=== PATIENT | female | born 1950 ===

== ENCOUNTER 2024-07-14 16:51 | Observation (INO) | payer MEDICARE, SELFPAY ==
[2024-07-14] VITALS (14 sets, daily range): BP systolic 123–159; BP diastolic 6–67; PULSE 64–92; RESP 15–17; TEMP 36.4–36.6; O2SAT 96–100; BMI 26.6
[2024-07-14 17:34] LABS: Basophils Absolute Auto 0.08 K/mm3 (0.00-0.10); Basophils Percent Auto 0.7 % (0.0-1.0); Eosinophils Absolute Auto 0.26 K/mm3 (0.02-0.50); Eosinophils Percent Auto 2.4 % (1.0-6.0); Hematocrit 31.5 % (35.0-42.0); Hemoglobin 10.2 g/dL (11.7-13.8); Immature Granulocyte Absolute 0.08 K/mm3 (0.00-0.00); Immature Granulocyte Percent A 0.7 % (0.0-0.0); Immature Platelet Fraction Pct 1.2 % (1.0-7.0); Lymphocytes Absolute Auto 1.25 K/mm3 (1.10-4.50); Lymphocytes Percent Auto 11.7 % (18.0-42.0); Mean Corpuscular HGB Conc 32.4 g/dL (32-36); Mean Corpuscular Hemoglobin 29.1 pg (27.0-31.0); Mean Corpuscular Volume 89.7 fL (78.0-102.0); Monocytes Absolute Auto 0.85 K/mm3 (0.10-0.90); Neutrophils Absolute Auto 8.15 K/mm3 (1.70-7.20); Neutrophils Percent Auto 76.5 % (50.0-70.0); Platelet Count Result 517 K/mm3 (150-420); Red Blood Count 3.51 M/mm3 (4.20-5.40); Red Cell Distribution Width 13.8 % (11.6-14.4); White Blood Count 10.7 K/mm3 (4.8-10.8)
[2024-07-14 17:51] LABS: Alanine Aminotransferase 10 U/L (14-59); Albumin Level 2.3 g/dL (3.4-5.0); Alkaline Phosphatase 96 U/L (46-116); Anion Gap 12 mmol/L (4-12); Aspartate Amino Transferase 16 U/L (15-37); Bilirubin,Total 0.5 mg/dL (0.00-1.00); Blood Urea Nitrogen 71 mg/dL (7-18); Calcium 9.2 mg/dL (8.5-10.1); Carbon Dioxide 20 mmol/L (21-32); Chloride 105 mmol/L (98-108); Estimated CRCL calculation 34 ml/min; Estimated Glomerular Filt Rate 40; Glucose 264 mg/dL (70-99); Magnesium 1.8 mg/dL (1.8-2.4); Osmolality Calculated 313 mOsm/kg (285-295); Potassium 4.7 mmol/L (3.5-5.1); Sodium 137 mmol/L (136-145); Total Protein 6.8 g/dL (6.4-8.2)
--- NOTE | 2024-07-14 19:41 | ADMGEN ---
This patient, Lisa Wilcox, was admitted to 2nd Floor Room 202-1. Patient/family oriented to hospital policies and general routines including ID bracelet, bed and alarms, visiting hours, pain management, procedures, bathroom and other care routines, personal items, smoking policy, room service/diet, and visiting hours. Information on how to activate the Rapid Response Team has been discussed. Patient/Family are encouraged to report perceived risks to care and to ask questions if they do not understand what they are told or what they should do.
[2024-07-14] MEDS: METOPROLOL TARTRATE 50 MG TAB BY MOUTH (22:13)
[2024-07-14] MEDS: ATORVASTATIN 40 MG TABLET PO (22:13)
[2024-07-14] MEDS: SACUBITRIL/VALSARTAN 49-51 MG TABLET 1 TABLET PO (22:14)
[2024-07-14] MEDS: MELATONIN 5 MG TABLET PO (22:14)
[2024-07-14] MEDS: HYDROcodone/acetaminophen (*CRX) 5-325 MG TABLET 1 TAB PO (23:24)
[2024-07-15] VITALS: BP 146/61; PULSE 70; RESP 16; TEMP 37.2; O2SAT 99
[2024-07-15 05:14] LABS: Basophils Absolute Auto 0.07 K/mm3 (0.00-0.10); Basophils Percent Auto 0.7 % (0.0-1.0); Eosinophils Absolute Auto 0.33 K/mm3 (0.02-0.50); Eosinophils Percent Auto 3.2 % (1.0-6.0); Hemoglobin 9.2 g/dL (11.7-13.8); Immature Granulocyte Absolute 0.06 K/mm3 (0.00-0.00); Immature Granulocyte Percent A 0.6 % (0.0-0.0); Lymphocytes Absolute Auto 1.45 K/mm3 (1.10-4.50); Mean Corpuscular HGB Conc 32.9 g/dL (32-36); Mean Corpuscular Hemoglobin 29.9 pg (27.0-31.0); Mean Corpuscular Volume 90.9 fL (78.0-102.0); Mean Platelet Volume 9.4 fl (9.2-11.8); Monocytes Absolute Auto 0.98 K/mm3 (0.10-0.90); Monocytes Percent Auto 9.4 % (2.0-11.0); Neutrophils Percent Auto 72.1 % (50.0-70.0); Platelet Count Result 417 K/mm3 (150-420); Red Blood Count 3.08 M/mm3 (4.20-5.40); Red Cell Distribution Width 13.8 % (11.6-14.4); White Blood Count 10.4 K/mm3 (4.8-10.8)
[2024-07-15 05:29] LABS: Alanine Aminotransferase 19 U/L (14-59); Albumin Level 2.1 g/dL (3.4-5.0); Alkaline Phosphatase 89 U/L (46-116); Anion Gap 9 mmol/L (4-12); Aspartate Amino Transferase 16 U/L (15-37); Bilirubin,Total 0.4 mg/dL (0.00-1.00); Blood Urea Nitrogen 66 mg/dL (7-18); Calcium 9.1 mg/dL (8.5-10.1); Carbon Dioxide 23 mmol/L (21-32); Chloride 106 mmol/L (98-108); Estimated CRCL calculation 37 ml/min; Estimated Glomerular Filt Rate 43; Glucose 202 mg/dL (70-99); Osmolality Calculated 311 mOsm/kg (285-295); Potassium 4.6 mmol/L (3.5-5.1); Sodium 138 mmol/L (136-145); Total Protein 6.3 g/dL (6.4-8.2)
--- NOTE | 2024-07-15 07:19 | P.HP_ITS ---
H&P: HPI History of Present Illness Date/Time: 07/15/24 07:19 Chief Complaint: weakness Narrative: This is a 74 year old female with a significant past medical history of type 2 diabetes mellitus, hypertension, hyperlipidemia, tobacco dependence who presented to the hospital for evaluation of weakness. patient initially sustained a ground level fall at home on while at her granddaughter's house in [facility] and was taken to [facility] and underwent a right hip arthroplasty on 06/30/2024. She tolerated the procedure well without any immediate complications. She was found on EKG to have ST depression in V3, V4, V5, V6 and an elevated troponin of greater than 300 while at the outside hospital requiring transfer to tertiary care. At the outside hospital she was found to have sinus pauses on telemetry. She also had a echocardiogram which showed an ejection fraction of 30-35%, apex inferior laterally and entire septum akinetic, grade 3 LV diastolic dysfunction. She was placed on a heparin drip and was taken to the cardiac electrical laboratory technician on 07/01/2024, right radial approach. She was found to have severe multivessel disease including severely calcified and stenosed LAD of 95-99%, calcified LCX 90-95%, 100% mid RCA occlusion. She was transferred to [facility] for consideration of CABG versus PCI considering her NSTEMI and ischemic cardiomyopathy. she was offered CABG surgery however initially declined as she wanted to wait until after the holidays to have this surgery done. Her heart rate at [facility] was in the 30s to 40s and they held her Coreg and beta garrett. She was also offered rehab placement after surgery but declined stating that she would do it at home with family help. at home, EMS was called out to the house twice yesterday for assistance with toileting and was brought in for evaluation of weakness and potential rehab placement. She states that her works every day during the week and her kids were not available to help like she thought that they would. Workup in the hospital included initial labs which showed a normal white blood cell count of 10.7, hemoglobin 10.2, platelet count 517, bicarb 20, creatinine 1.31, EGFR 40, albumin 2.3. Patient was given [place] while in the ED. she is being admitted in this setting for PT/OT evaluation and potential rehab placement. she was restarted on her beta garrett by Dr. Baker, ED physician, who admitted overnight and patient received beta garrett this morning which dropped her heart rate into the 30s, ranging 36-39 appears to be sinus Darius on EKG with a heart rate of 36 and a QTC of 546. patient was placed on telemetry here and calls are being placed for emergent transfer to tertiary care for Cardiology Services with the potential of CT surgery services. Patient denies any fever, chills, nausea, vomiting, diarrhea, abdominal pain, chest pain, or shortness of breath. She is currently on room air. Her blood pressures are running soft 98/34. Code status was discussed with patient and family and she wishes to remain a full code. [facility] transfer center was called at 11:[address] a[address] Whittington, CT surgery team at [facility] at 11:34 a.m. who is deferring to regular Cardiology at [facility] as she may require pacing before CT surgery gets involved. Spoke with Orthotist Prosthetist Dr. Tiwari at [facility] who is happy to accept patient and put her on the list to transfer. We are awaiting bed placement at this time. Review of Systems Review of Systems: All systems reviewed & are unremarkable except as noted in HPI and below Constitutional: Constitutional: Reports as per HPI and Reports no additional constitutional complaints Eyes: Eyes: Reports as per HPI and Reports no additional eye complaints ENT: Reports system reviewed and no additional complaints, except as documented and Reports as per HPI Cardiovascular: Cardiovascular: Reports as per HPI and Reports no additional cardiovascular complaints Respiratory: Respiratory: Reports as per HPI and Reports no additional respiratory complaints Gastrointestinal: Gastrointestinal: Reports as per HPI and Reports no additional gastrointestinal complaints Genitourinary: Genitourinary: Reports no additional female genitourinary complaints and Reports as per HPI Musculoskeletal: Musculoskeletal: Reports no additional musculoskeletal complaints and Reports as per HPI Integumentary/Breasts: Skin/Breast: Reports system reviewed and no additional complaints, except as docu and Reports as per HPI Neurologic: Reports system reviewed and no additional complaints, except as documented and Reports as per HPI Psychiatric: Psychiatric: Reports no additional psychiatric complaints and Reports as per HPI [facility] Past Medical History Medical History (Updated 07/15/24 @ 11:56 by Olivia Rocha, MERY) Ischemic cardiomyopathy Coronary artery disease NSTEMI (non-ST elevated myocardial infarction) Acute heart failure with reduced ejection fraction (HFrEF, <= 40%) and combined systolic and diastolic dysfunction Tobacco dependence Hx of fracture of humerus Right Type 2 diabetes mellitus HTN (hypertension) Hyperlipidemia Surgical History Surgical History (Updated 07/15/24 @ 10:52 by Olivia Rocha APRN) S/P total right hip arthroplasty H/O cataract removal with insertion of prosthetic lens Right 2013 Family History Family History Mother Ovarian cancer Social History Social History Smoking status: Current every day smoker Tobacco type: cigarettes Alcohol intake: never Substance use: never Substance use type: does not use Do You Feel Safe in your Home?: Yes Lack of Transportation: No Lack of Food: Never True Current Housing: I Have Housing Concerned About Future Housing: No Difficulty Paying Gas/Electric Bills: No Difficulty Paying for Meds: No Currently Unemployed: No Education: High School Diploma/GED Difficulty w/ Childcare or Family Care: No Living arrangements: with family Spiritual care concerns: Yes () Meds Home Medications and Allergies Home Medications ?Medication ?Instructions ?Recorded ?Confirmed ?Type lisinopril 20 See Rx Instructions .Route 01/26/24 07/14/24 Rx mg-hydrochlorothiazide 12.5 mg .COMPLEX #180 tabs tablet glipizide 5 mg tablet See Rx Instructions .Route 04/27/24 07/14/24 Rx .COMPLEX #180 tabs metoprolol tartrate 50 mg tablet See Rx Instructions .Route 04/27/24 07/14/24 Rx .COMPLEX #180 tabs gemfibrozil 600 mg tablet See Rx Instructions .Route 05/15/24 07/14/24 Rx .COMPLEX #30 tabs metformin 500 mg tablet See Rx Instructions .Route 06/12/24 07/14/24 Rx .COMPLEX #60 tabs apixaban 2.5 mg tablet 2.5 mg PO Q12H 07/14/24 07/14/24 History aspirin 81 mg chewable tablet 81 mg PO DAILY 07/14/24 07/14/24 History ([place]ton Chewable Low Dose Aspirin) atorvastatin 40 mg tablet 40 mg PO HS 07/14/24 07/14/24 History cholecalciferol (vitamin D3) 50 2,000 unit PO DAILY 07/14/24 07/14/24 History mcg (2,000 unit) capsule (D3-2000) empagliflozin 10 mg tablet 10 mg PO DAILY 07/14/24 07/14/24 History sacubitril 49 mg-valsartan 51 mg 1 tablet PO BID 07/14/24 07/14/24 History tablet Allergies Allergy/AdvReac Type Severity Reaction Status Date / Time No Known Allergies Allergy Verified 07/14/24 17:08 Vital Signs Vital Signs - 24 hr 07/14/24 16:51 07/14/24 17:02 07/14/24 17:15 Temperature 97.8 F Pulse Rate 92 85 64 Respiratory Rate 16 16 16 Blood Pressure 151/64 H 151/6 H 150/67 H Pulse Oximetry 100 99 100 Oxygen Delivery Room Air 07/14/24 17:16 07/14/24 17:30 07/14/24 17:31 Temperature Pulse Rate 84 Respiratory Rate 15 Blood Pressure 123/55 L Pulse Oximetry 100 96 96 Oxygen Delivery 07/14/24 17:45 07/14/24 17:46 07/14/24 18:00 Temperature Pulse Rate 90 88 Respiratory Rate 16 15 Blood Pressure 142/64 H 147/66 H Pulse Oximetry 99 99 98 Oxygen Delivery 07/14/24 18:04 07/14/24 18:15 07/14/24 18:16 Temperature Pulse Rate 86 Respiratory Rate 17 Blood Pressure 159/67 H Pulse Oximetry 100 100 99 Oxygen Delivery 07/14/24 18:35 07/14/24 22:00 07/15/24 00:00 Temperature 97.8 F 97.5 F L 98.9 F Pulse Rate 86 87 70 Respiratory Rate 17 16 16 Blood Pressure 159/67 H 157/67 H 146/61 H Pulse Oximetry 99 100 99 Oxygen Delivery Room Air Room Air Room Air Exam Narrative: General: In no acute distress, well nourished Head: atraumatic, no encephalopathy Eyes: PERRLA, sclera clear ENT: moist mucous membranes, nasal passages clear Neck: supple, no JVD, no adenopathy, trachea midline Cardiac: Normal S1 and S2. Sinus bradycardia 36, No murmur, gallops or friction rubs, peripheral pulses intact. Respiratory: Lungs clear to auscultation, no adventitious lung sounds, currently on room air Gastrointestinal: soft, non-distended, non-tender, normoactive bowel sounds. : voiding without difficulty. Extremities: moves all extremities well, no edema, good ROM, strength 5/5 Skin: clean, dry, intact. No wounds or lesions. Neuro: Alert and oriented x4, cranial nerves intact, no neuro deficits. Psych: normal mood, normal affect, interactive H&P: Results Labs Labs: Short CBC 07/14/24 07/15/24 Range/Units 17:11 05:09 WBC 10.7 10.4 (4.8-10.8) K/mm3 Hgb 10.2 L 9.2 L (11.7-13.8) g/dL Hct 31.5 L 28.0 L (35.0-42.0) % Plt Count 517 H 417 (150-420) K/mm3 [facility] 07/14/24 07/15/24 17:11 05:09 Sodium 137 138 Potassium 4.7 4.6 Chloride 105 106 Carbon Dioxide 20 L 23 BUN 71 H 66 H Creatinine 1.31 H 1.21 H Glucose 264 H 202 H Calcium 9.2 9.1 Liver Function 07/14/24 07/15/24 Range/Units 17:11 05:09 Total Bilirubin 0.5 0.4 (0.00-1.00) mg/dL AST 16 16 (15-37) U/L ALT 10 L 19 (14-59) U/L Alkaline Phosphatase 96 89 (46-116) U/L Albumin 2.3 L 2.1 L (3.4-5.0) g/dL Assessment and Plan Assessment and plan (1) Weakness: Code(s): R53.1 - Weakness Status: Acute Assessment and Plan: * status post right hip arthroplasty on 06/30/2024 * fall precautions ordered * PT and OT ordered for eval and treat * case management consulted for rehab placement (2) S/P total right hip arthroplasty: Code(s): Z96.641 - Presence of right artificial hip joint Status: Acute Assessment and Plan: * status post right hip arthroplasty from 06/30/2024 * PT and OT ordered (3) 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 Patient was found to have ST depression in V3, V4, V5, V6 on EKG with an elevated troponin of greater than 300. She had a TTE at the outside facility which showed an ejection fraction of 30-35% with apex inferior laterally in entire septum akinetic, grade 3 left ventricular diastolic dysfunction. She was started on a heparin drip and was noted to have sinus pauses on telemetry. Patient was taken to the electrical laboratory technician on 07/01 and was accessed through the right radial and was found to have multi vessel disease LAD was severely calcified and stenosed at 95- 99%, calcified LCX 90-95%, mid RCA was 100% occluded and she was transferred to [place] for consideration of CABG versus PCI * patient refused CABG or intervention at [facility] until after the holidays and an appointment was set up with Dr. Avila on 08/05/2023 and was discharged * she was placed on Jardiance, Entresto * Coreg was placed on hold to 2 bradycardia and spironolactone was held due to hyperkalemia at the outside hospital * patient was given her metoprolol this morning which was prescribed by the ED physician Dr. Baker even though she had a history of Darius arrhythmias at the outside hospital, her heart rate is currently in the 30s on monitor * metoprolol placed on hold by sd * stat EKG showed sinus Darius with a rate of 36, QTC 546 * [facility] transfer center called and patient accepted by Dr. Tiwari adhesion tester at [facility], awaiting bed placement. (4) Coronary artery disease: Code(s): I25.10 - Atherosclerotic heart disease of [place] coronary artery without angina pectoris Status: Acute Assessment and Plan: * cardiac catheterization on 07/01/2024, right radial approach shown severe multivessel disease including the LAD which was severely calcified /stenosed at 95-99%, calcified LCX at 90-95%, 100% mid RCA occlusion * patient refused CABG at [facility] until after the holidays and currently has an appointment with Dr. Avila on 08/05/2023 * continue cardiac monitoring (5) Ischemic cardiomyopathy: Code(s): I25.5 - Ischemic cardiomyopathy Status: Acute Assessment and Plan: * see above plan of care (6) NSTEMI (non-ST elevated myocardial infarction): Code(s): I21.4 - Non-ST elevation (NSTEMI) myocardial infarction Status: Acute Assessment and Plan: * history of NSTEMI at outside hospital with troponin bumped greater than 300 she was transferred to [facility] for consideration of CABG versus PCI * see above for details (7) Type 2 diabetes mellitus: Code(s): E11.9 - Type 2 diabetes mellitus without complications Status: Chronic Assessment and Plan: * Blood sugars ranging 202-264 * Hgb A1C 5.8 on 01/28/2021 * will obtain another hemoglobin A1c * Accu checks AC/HS * moderate dose SSI ordered * Hold glipizide, metformin, Jardiance * hypoglycemic protocol in place * Diabetic diet ordered (8) HTN (hypertension): Code(s): I10 - Essential (primary) hypertension Status: Chronic Assessment and Plan: * blood pressure 98/34 after receiving metoprolol this morning with a heart rate of 36 * will hold Entresto until beta garrett wears off (9) Hyperlipidemia: Code(s): E78.5 - Hyperlipidemia, unspecified Status: Chronic Assessment and Plan: * continue aspirin and atorvastatin Quality VTE Prophylaxis VTE prophylaxis: pharmacologic ordered Hospitalist MIPS Advance Care Plan I have confirmed that the patient's Advanced Care Plan is present, code status is documented, or surrogate decision maker is listed in patient medical record.: Yes Medication Reconciliation I have utilized all available resources to obtain, update and review the patients current medications (includes all prescriptions, OTC, herbals, cannabi s, and nutritional supplements).: Yes
[2024-07-15] MEDS: metFORMIN HCL 500 MG TABLET BY MOUTH (08:57)
[2024-07-15] MEDS: glipiZIDE 5 MG TABLET BY MOUTH (08:57)
[2024-07-15] MEDS: CHOLECALCIFEROL 1,000 UNITS TABLET 2000 UNITS PO (08:57)
[2024-07-15 08:58] VITALS: PULSE 58
[2024-07-15] MEDS: SACUBITRIL/VALSARTAN 49-51 MG TABLET 1 TABLET PO (08:58)
[2024-07-15] MEDS: EMPAGLIFLOZIN 10 MG TABLET PO (08:58)
[2024-07-15] MEDS: METOPROLOL TARTRATE 50 MG TAB BY MOUTH (08:58)
[2024-07-15] MEDS: ASPIRIN 81 MG CHEWABLE TABLET PO (08:58)
[2024-07-15] MEDS: ENOXAPARIN 40 MG/0.4 ML SYRINGE SUB-Q (09:09)
--- NOTE | 2024-07-15 10:24 | ECG_ITS ---
Test Date: 2024-07-15 11:03:39 Measurements Intervals [place] Rate: 36 P: -36 [place]: 127 QRS: 23 QRSD: 106 T: 210 QT: 546 QTc: 427 Interpretive Statements SINUS BRADYCARDIA INFERIOR MYOCARDIAL INFARCTION , OF INDETERMINATE AGE [40+ ms Q WAVE AND/OR ST/T ABNORMALITY IN II/aVF] MARKED T-WAVE ABNORMALITY, CONSIDER ANTEROLATERAL ISCHEMIA [-0.5+ mV T-WAVE IN I/aVL/V3-V6] CRITICAL TEST RESULT No previous ECG available for comparison Electronically Signed On 07-17-2024 11:59:07 BLANKET WINDER OPERATOR by Dax Engel M.D.
--- NOTE | 2024-07-15 10:48 | PC.NURSE ---
Pt has extensive cardiac history. She is Darius cardic at 37, sleepy dificulty staying awake. FIELD SERVICE POULTRY TECHNICIAN notified and came directly to the room. Tele applied per orders . Pt family at bedside.
[2024-07-15 10:54] LABS: Hemoglobin A1C 6.9 % (<5.7)
[2024-07-15] MEDS: INSULIN HUMAN LISPRO (*BKC) 1,000 UNITS/10 ML VIAL SUB-Q (10:58)
[2024-07-15 11:01] LABS: Glucose Point of Care 312 mg/dl (65-105)
--- NOTE | 2024-07-15 11:37 | PC.NURSE ---
VS : 97.4, 97% O2 RA, 38 p. 116/41. AXOx 3. RO
--- NOTE | 2024-07-15 11:53 | PC.NURSE ---
Received call from [facility] line. Gave triage information to Tatyana. Pt is on list for admission to cardiology services, but no bed available at this time.
[2024-07-15 12:00] VITALS: BP 121/38; PULSE 42; RESP 14; TEMP 36.4; O2SAT 98
[2024-07-15 16:30] VITALS: BP 133/49; PULSE 42; PULSE 56; RESP 18; TEMP 36.6; O2SAT 99
[2024-07-15 16:56] LABS: Glucose Point of Care 103 mg/dl (65-105)
[2024-07-15 20:00] VITALS: BP 131/53; PULSE 60; PULSE 62; RESP 18; TEMP 36.6; O2SAT 99
[2024-07-15] MEDS: HYDROcodone/acetaminophen (*CRX) 5-325 MG TABLET 1 TAB PO (20:28)
[2024-07-15] MEDS: MELATONIN 5 MG TABLET PO (20:28)
[2024-07-15] MEDS: ATORVASTATIN 40 MG TABLET PO (20:28)
[2024-07-15 20:38] LABS: Glucose Point of Care 128 mg/dl (65-105)
[2024-07-16] VITALS (7 sets, daily range): BP systolic 122–153; BP diastolic 50–70; PULSE 52–112; RESP 12–16; TEMP 36.4–36.7; O2SAT 95–99
[2024-07-16 08:14] LABS: Glucose Point of Care 152 mg/dl (65-105)
[2024-07-16] MEDS: CHOLECALCIFEROL 1,000 UNITS TABLET 2000 UNITS PO (09:24)
[2024-07-16] MEDS: EMPAGLIFLOZIN 10 MG TABLET PO (09:25)
[2024-07-16] MEDS: ASPIRIN 81 MG CHEWABLE TABLET PO (09:25)
--- NOTE | 2024-07-16 09:37 | PM.IMPN ---
Progress Note: A&P Assessment and Plan (1) Weakness: Code(s): R53.1 - Weakness Status: Acute Assessment and Plan: status post right hip arthroplasty on 06/30/2024 fall precautions ordered PT and OT ordered for eval and treat case management consulted for rehab placement (2) S/P total right hip arthroplasty: Code(s): Z96.641 - Presence of right artificial hip joint Status: Acute Assessment and Plan: status post right hip arthroplasty from 06/30/2024 PT and OT ordered (3) Acute heart failure with reduced ejection fraction (HFrEF, <= 40%) and combined systolic and diastolic dysfunction: Code(s): I50.41 - Acute combined systolic (congestive) and diastolic (congestive) heart failure Status: Acute Assessment and Plan: 07/16 information obtained from outside medical record. Patient was found to have ST depression in V3, V4, V5, V6 on EKG with an elevated troponin of greater than 300. She had a TTE at the outside facility which showed an ejection fraction of 30-35% with apex inferior laterally in entire septum akinetic, grade 3 left ventricular diastolic dysfunction. She was started on a heparin drip and was noted to have sinus pauses on telemetry. Patient was taken to the animal laboratory technician on 07/01 and was accessed through the right radial and was found to have multi vessel disease LAD was severely calcified and stenosed at 95-99%, calcified LCX 90-95%, mid RCA was 100% occluded and she was transferred to [facility] for consideration of CABG versus PCI patient refused CABG or intervention at [facility] until after the holidays and an appointment was set up with Dr. Avila on 08/05/2023 and was discharged she was placed on Jardiance, Entresto Coreg was placed on hold due to bradycardia and spironolactone was held due to hyperkalemia at the outside hospital patient was given her metoprolol this morning which was prescribed by the ED physician Dr. Baker even though she had a history of Darius arrhythmias at the outside hospital, her heart rate is currently in the 30s on monitor metoprolol placed on hold by me this morning stat EKG showed sinus Darius with a rate of 36, QTC 546 [facility] transfer center called and patient accepted by Dr. Tiwari regulation supervisor at [facility], awaiting bed placement. 07/17 Repeat EKG showing sinus bradycardia with 2nd degree AV block, 2:1 or Mobitz type II with a rate of 58, QTc 471. Spoke with Dr. Kaye Rehabilitation Caseworker at [facility] and she suggested that as long as her blood pressure remains good then we do not have to move emergently. If her heart rate and blood pressure dropped then we could always start inotropic agent which would upgrade her to ICU status. If that were to happen then we will update [facility] transfer center. Currently she is asymptomatic and on bedrest. B/P and heart rate improved overnight Still awaiting transfer to [facility] updated on EKG results this a.m. Was noted to have sinus pauses at the outside hospital and BB were held, ??? sick sinus syndrome Continue cardiac monitoring Troponin 72.4 today, will continue to trend. She denies any chest pain or shortness of breath. (4) Coronary artery disease: Code(s): I25.10 - Atherosclerotic heart disease of [place] coronary artery without angina pectoris Status: Acute Assessment and Plan: cardiac catheterization on 07/01/2024, right radial approach shown severe multivessel disease including the LAD which was severely calcified /stenosed at 95-99%, calcified LCX at 90-95%, 100% mid RCA occlusion patient refused CABG at [facility] until after the holidays and currently has an appointment with Dr. Avila on 08/05/2023 to discuss CABG surgery continue cardiac monitoring (5) Ischemic cardiomyopathy: Code(s): I25.5 - Ischemic cardiomyopathy Status: Acute Assessment and Plan: see above plan of care (6) NSTEMI (non-ST elevated myocardial infarction): Code(s): I21.4 - Non-ST elevation (NSTEMI) myocardial infarction Status: Acute Assessment and Plan: history of NSTEMI at outside hospital with troponin bumped greater than 300 she was transferred to [facility] for consideration of CABG versus PCI see above for details 07/16 Troponin today 72.4, will trend--patient is not symptomatic, likely demand ischemia (7) Type 2 diabetes mellitus: Code(s): E11.9 - Type 2 diabetes mellitus without complications Status: Chronic Assessment and Plan: Blood sugars ranging 128-152 Hgb A1C 6.9 Accu checks AC/HS moderate dose SSI ordered Hold glipizide, metformin hypoglycemic protocol in place Diabetic diet ordered (8) HTN (hypertension): Code(s): I10 - Essential (primary) hypertension Status: Chronic Assessment and Plan: 07/15 blood pressure 98/34 after receiving metoprolol this morning with a heart rate of 36 will hold Entresto until beta garrett wears off 07/16 Blood pressure now ranging 122/50-145/70 Will restart Entresto today (9) Hyperlipidemia: Code(s): E78.5 - Hyperlipidemia, unspecified Status: Chronic Assessment and Plan: continue aspirin and atorvastatin Time Spent With Patient Time with patient: Greater than 35 minutes Subjective Date/time seen: 07/16/24 09:37 Interval history: Interval history: This is a 74 year old female with a significant past medical history of type 2 diabetes mellitus, hypertension, hyperlipidemia, tobacco dependence who presented to the hospital for evaluation of weakness. patient initially sustained a ground level fall at home on while at her granddaughter's house in [place] and was taken to [facility] and underwent a right hip arthroplasty on 06/30/2024. She tolerated the procedure well without any immediate complications. She was found on EKG to have ST depression in V3, V4, V5, V6 and an elevated troponin of greater than 300 while at the outside hospital requiring transfer to tertiary care. At the outside hospital she was found to have sinus pauses on telemetry. She also had a echocardiogram which showed an ejection fraction of 30-35%, apex inferior laterally and entire septum akinetic, grade 3 LV diastolic dysfunction. She was placed on a heparin drip and was taken to the cardiac animal laboratory technician on 07/01/2024, right radial approach. She was found to have severe multivessel disease including severely calcified and stenosed LAD of 95-99%, calcified LCX 90-95%, 100% mid RCA occlusion. She was transferred to [facility] for consideration of CABG versus PCI considering her NSTEMI and ischemic cardiomyopathy. she was offered CABG surgery however initially declined as she wanted to wait until after the holidays to have this surgery done. Her heart rate at [facility] was in the 30s to 40s and they held her Coreg and beta garrett. She was also offered rehab placement after surgery but declined stating that she would do it at home with family help. at home, EMS was called out to the house twice yesterday for assistance with toileting and was brought in for evaluation of weakness and potential rehab placement. She states that her works every day during the week and her kids were not available to help like she thought that they would. Workup in the hospital included initial labs which showed a normal white blood cell count of 10.7, hemoglobin 10.2, platelet count 517, bicarb 20, creatinine 1.31, EGFR 40, albumin 2.3. Patient was given [place] while in the ED. she is being admitted in this setting for PT/OT evaluation and potential rehab placement. she was restarted on her beta garrett by Dr. Baker, ED physician, who admitted overnight and patient received beta garrett this morning which dropped her heart rate into the 30s, ranging 36-39 appears to be sinus Darius on EKG with a heart rate of 36 and a QTC of 546. patient was placed on telemetry here and calls are being placed for emergent transfer to tertiary care for Cardiology Services with the potential of CT surgery services. Patient denies any fever, chills, nausea, vomiting, diarrhea, abdominal pain, chest pain, or shortness of breath. She is currently on room air. Her blood pressures are running soft 98/34. Code status was discussed with patient and family and she wishes to remain a full code. [facility] transfer center was called at 11:[address] a[address]. Whittington, CT surgery team at [facility] at 11:34 a.m. who is deferring to regular Cardiology at [facility] as she may require pacing before CT surgery gets involved. Spoke with Rehabilitation Caseworker Dr. Tiwari at [facility] who is happy to accept patient and put her on the list to transfer. We are awaiting bed placement at this time. Subjective: Review of Systems Review of Systems: All systems reviewed & are unremarkable except as noted in HPI and below Constitutional: Constitutional: Reports as per HPI and Reports no additional constitutional complaints Eyes: Eyes: Reports as per HPI and Reports no additional eye complaints ENT: Reports system reviewed and no additional complaints, except as documented and Reports as per HPI Cardiovascular: Cardiovascular: Reports as per HPI and Reports no additional cardiovascular complaints Respiratory: Respiratory: Reports as per HPI and Reports no additional respiratory complaints Gastrointestinal: Gastrointestinal: Reports as per HPI and Reports no additional gastrointestinal complaints Genitourinary: Genitourinary: Reports no additional female genitourinary complaints and Reports as per HPI Musculoskeletal: Musculoskeletal: Reports no additional musculoskeletal complaints and Reports as per HPI Integumentary/Breasts: Skin/Breast: Reports system reviewed and no additional complaints, except as docu and Reports as per HPI Neurologic: Reports system reviewed and no additional complaints, except as documented and Reports as per HPI Psychiatric: Psychiatric: Reports no additional psychiatric complaints and Reports as per HPI Exam Narrative: General: In no acute distress Cardiac: Normal S1 and S2. Sinus bradycardia 36, No murmur, gallops or friction rubs, peripheral pulses intact. Respiratory: Lungs clear to auscultation, no adventitious lung sounds, currently on room air Gastrointestinal: soft, non-distended, non-tender, normoactive bowel sounds. : voiding without difficulty. Neuro: Alert and oriented x4 Objective Data Vital Signs Vital Signs: Vital Signs - 24 hr 07/15/24 12:00 07/15/24 16:30 07/15/24 16:30 Temperature 97.6 F 97.8 F Pulse Rate 42 L 42 L 56 L Respiratory Rate 14 18 Blood Pressure 121/38 L 133/49 L Pulse Oximetry 98 99 Oxygen Delivery Room Air Room Air 07/15/24 20:00 07/15/24 20:00 07/16/24 00:00 Temperature 97.8 F Pulse Rate 62 60 52 L Respiratory Rate 18 Blood Pressure 131/53 L Pulse Oximetry 99 Oxygen Delivery Room Air 07/16/24 00:00 07/16/24 04:00 07/16/24 04:00 Temperature 98.1 F 98.0 F Pulse Rate 52 L 56 L 52 L Respiratory Rate 16 16 Blood Pressure 122/50 L 128/51 L Pulse Oximetry 99 98 Oxygen Delivery Room Air Room Air 07/16/24 08:00 07/16/24 08:00 Temperature 97.7 F Pulse Rate 95 112 H Respiratory Rate 14 Blood Pressure 145/70 H Pulse Oximetry 95 Oxygen Delivery Room Air Intake/Output Intake/Output: Intake & Output 07/13/24 07/14/24 07/15/24 07/16/24 23:59 23:59 23:59 23:59 Intake Total 1300 150 Output Total 150 Balance -150 1300 150 Meds/Results Medications: Active Medications Generic Name Dose Route Start Last Admin Trade Name Freq PRN Reason Stop Dose Admin Acetaminophen 650 mg 07/15/24 10:21 Acetaminophen 325 Mg Tablet PO Q4H PRN Mild Pain (1-3) or Fever Hydrocodone Bitart/Acetaminophen 1 tab 07/14/24 18:27 07/15/24 20:28 Hydrocodone/Acetaminophen (*Crx) 5-325 Mg Tablet PO 1 tab Q4H PRN Administration Moderate Pain (4-6) Apixaban 2.5 mg 07/15/24 10:15 07/15/24 12:16 Apixaban 2.5 Mg Tablet PO Not Given Q12HR RENATA Aspirin 81 mg 07/15/24 09:00 07/16/24 09:25 Aspirin 81 Mg Chewable Tablet PO 81 mg DAILY RENATA Administration Atorvastatin Calcium 40 mg 07/14/24 21:00 07/15/24 20:28 Atorvastatin 40 Mg Tablet PO 40 mg HS RENATA Administration Dextrose 12.5 gm 07/15/24 10:17 Dextrose 50% 25 Gm/50 Ml Syringe IV PUSH PRN PRN Hypoglycemia Protocol Empagliflozin 10 mg 07/15/24 09:00 07/16/24 09:25 Empagliflozin 10 Mg Tablet PO 10 mg DAILY RENATA Administration Glucagon 1 mg 07/15/24 10:17 Glucagon For Inj 1 Mg Vial IM PRN PRN Hypoglycemia Protocol Glucose 15 gm 07/15/24 10:17 Glucose Oral Gel 15 Gm Of Glucse In 37.5 Gm Tube PO PRN PRN Hypoglycemia Protocol Dextrose 1,000 mls @ 100 mls/hr 07/15/24 10:17 Dextrose 5% 1,000 Ml IVPB PRN PRN Hypoglycemia Protocol Insulin Human Lispro 3 - 6 units 07/15/24 12:00 07/16/24 09:25 Insulin Human Lispro (*Bkc) 1,000 Units/10 Ml Vial SUB-Q Not Given TIDWM [facility] Protocol Melatonin 5 mg 07/14/24 21:00 07/15/24 20:28 Melatonin 5 Mg Tablet PO 5 mg HS RENATA Administration Ondansetron HCl 4 mg 07/15/24 10:21 Ondansetron Inj 4 Mg/2 Ml Vial IV PUSH Q6H PRN Nausea And Vomiting Sacubitril/Valsartan 1 tablet 07/14/24 21:00 07/15/24 08:58 Sacubitril/Valsartan 49-51 Mg Tablet PO 1 tablet Q12HR RENATA Administration Vitamin D 2,000 units 07/15/24 09:00 07/16/24 09:24 Cholecalciferol 1,000 Units Tablet PO 2,000 units DAILY RENATA Administration Labs Labs: Laboratory Results - last 24 hr 07/15/24 07/15/24 07/15/24 05:09 10:54 16:51 POC Capillary Glucose 312 H 103 Hemoglobin A1c 6.9 H 07/15/24 07/16/24 20:32 07:46 POC Capillary Glucose 128 H 152 H Hemoglobin A1c Quality VTE Prophylaxis VTE prophylaxis: pharmacologic ordered
--- NOTE | 2024-07-16 09:43 | ECG_ITS ---
Test Date: 2024-07-16 10:04:48 Measurements Intervals [place] Rate: 58 P: 0 DE: 0 QRS: 26 QRSD: 106 T: 267 QT: 471 QTc: 466 Interpretive Statements SINUS BRADYCARDIA WITH MARKED ARRHYTHMIA INFERIOR MYOCARDIAL INFARCTION , OF INDETERMINATE AGE [40+ ms Q WAVE AND/OR ST/T ABNORMALITY IN II/aVF] MARKED T-WAVE ABNORMALITY, CONSIDER ANTEROLATERAL ISCHEMIA [-0.5+ mV T-WAVE IN I/aVL/V3-V6] CRITICAL TEST RESULT Compared to ECG 07/15/2024 11:03:39 No significant changes Electronically Signed On 07-17-2024 12:00:29 CREDIT COLLECTIONS CLERK by Dax Engel M.D.
[2024-07-16 11:11] LABS: Eosinophils Percent Auto 1.9 % (1.0-6.0); Hematocrit 27.1 % (35.0-42.0); Hemoglobin 8.9 g/dL (11.7-13.8); Immature Granulocyte Absolute 0.05 K/mm3 (0.00-0.00); Immature Granulocyte Percent A 0.5 % (0.0-0.0); Lymphocytes Absolute Auto 1.23 K/mm3 (1.10-4.50); Lymphocytes Percent Auto 11.9 % (18.0-42.0); Mean Corpuscular HGB Conc 32.8 g/dL (32-36); Mean Corpuscular Hemoglobin 29.5 pg (27.0-31.0); Mean Corpuscular Volume 89.7 fL (78.0-102.0); Monocytes Absolute Auto 0.87 K/mm3 (0.10-0.90); Monocytes Percent Auto 8.4 % (2.0-11.0); Neutrophils Absolute Auto 7.87 K/mm3 (1.70-7.20); Neutrophils Percent Auto 76.3 % (50.0-70.0); Platelet Count Result 425 K/mm3 (150-420); Red Blood Count 3.02 M/mm3 (4.20-5.40); Red Cell Distribution Width 13.6 % (11.6-14.4); White Blood Count 10.3 K/mm3 (4.8-10.8)
[2024-07-16 11:24] LABS: Alanine Aminotransferase 23 U/L (14-59); Albumin Level 2.3 g/dL (3.4-5.0); Alkaline Phosphatase 91 U/L (46-116); Anion Gap 9 mmol/L (4-12); Aspartate Amino Transferase 18 U/L (15-37); Bilirubin,Total 0.3 mg/dL (0.00-1.00); Blood Urea Nitrogen 57 mg/dL (7-18); Carbon Dioxide 23 mmol/L (21-32); Chloride 104 mmol/L (98-108); Estimated CRCL calculation 38 ml/min; Estimated Glomerular Filt Rate 45; Glucose 202 mg/dL (70-99); Magnesium 1.7 mg/dL (1.8-2.4); Osmolality Calculated 303 mOsm/kg (285-295); Potassium 4.9 mmol/L (3.5-5.1); Sodium 136 mmol/L (136-145); Total Protein 6.3 g/dL (6.4-8.2)
[2024-07-16 11:33] LABS: Troponin I 72.4 ng/L (0.00-60.4)
[2024-07-16 11:41] LABS: Glucose Point of Care 197 mg/dl (65-105)
[2024-07-16 15:57] LABS: Troponin I 77.1 ng/L (0.00-60.4)
--- NOTE | 2024-07-16 16:23 | PC.NURSE ---
Micah Rocha, HOT STICK WORKER/Hospitalist, notified of patient's latest troponin level of 77.1. Hospitalist acknowledged troponin level.
[2024-07-16 16:37] LABS: Glucose Point of Care 175 mg/dl (65-105)
--- NOTE | 2024-07-16 18:14 | PC.NURSE ---
Belkis from [facility] called and stated they have a room available at [facility]. Room [address], Bed 1. Call report to [phone]. Accepting doctor is Dr. Tiwari, cardiology.
--- NOTE | 2024-07-16 18:18 | PC.NURSE ---
Micah Rocha, MOTOR VEHICLE REPRESENTATIVE/Hospitalist, notified that [facility] now has a room available at the [facility].
--- NOTE | 2024-07-16 18:25 | PC.NURSE ---
Report called to Andreia at [facility]. Patient has been accepted, Room [address] Bed 1. Report called to [phone].
--- NOTE | 2024-07-16 20:44 | PC.NURSE ---
Patient picked up by [facility] for transfer to [place]. Charge Nurse attempted to call spouse multiple times to notify of the transfer. No answer. Message left for spouse to call this hospital.
--- NOTE | 2024-07-17 09:29 | P.TS_ITS ---
Transfer Discharge Sum: Prov Provider Date of admission: 07/14/24 18:14 Primary care physician: Mirna Burkett NP Admitting clinician: Evan King MD Consults: 07/15/24 Care Coordination Consult Routine Reason for Consult:: Acute Rehab Consult Attending physician on discharge: Buzz King Discharging clinician: Olivia Rocha Anticipated date of transfer: 07/16/24 Receiving physician/facility: Dr. Tiwari, cardiology [facility] DS: Admitting Diagnosis Discharge Date 07/16/24 Admitting Diagnosis weakness acute heart failure with reduced ejection fraction severe coronary artery disease ischemic cardiomyopathy NSTEMI type 2 diabetes mellitus hypertension hyperlipidemia DS: Discharge Diagnosis Discharge Diagnosis (1) Weakness: Code(s): R53.1 - Weakness Status: Acute Assessment and Plan: * status post right hip arthroplasty on 06/30/2024 * fall precautions ordered * PT and OT ordered for eval and treat * case management consulted for rehab placement (2) S/P total right hip arthroplasty: Code(s): Z96.641 - Presence of right artificial hip joint Status: Acute Assessment and Plan: * status post right hip arthroplasty from 06/30/2024 * PT and OT ordered (3) Acute heart failure with reduced ejection fraction (HFrEF, <= 40%) and combined systolic and diastolic dysfunction: Code(s): I50.41 - Acute combined systolic (congestive) and diastolic (congestive) heart failure Status: Acute Assessment and Plan: 07/16 * information obtained from outside medical record. Patient was found to have ST depression in V3, V4, V5, V6 on EKG with an elevated troponin of greater than 300. She had a TTE at the outside facility which showed an ejection fraction of 30-35% with apex inferior laterally in entire septum akinetic, grade 3 left ventricular diastolic dysfunction. She was started on a heparin drip and was noted to have sinus pauses on telemetry. Patient was taken to the laborer drying department on 07/01 and was accessed through the right radial and was found to have multi vessel disease LAD was severely calcified and stenosed at 95- 99%, calcified LCX 90-95%, mid RCA was 100% occluded and she was transferred to [facility] for consideration of CABG versus PCI * patient refused CABG or intervention at [facility] until after the holidays and an appointment was set up with Dr. Avila on 08/05/2023 and was discharged * she was placed on Jardiance, Entresto * Coreg was placed on hold due to bradycardia and spironolactone was held due to hyperkalemia at the outside hospital * patient was given her metoprolol this morning which was prescribed by the ED physician Dr. Baker even though she had a history of Darius arrhythmias at the outside hospital, her heart rate is currently in the 30s on monitor * metoprolol placed on hold by me this morning * stat EKG showed sinus Darius with a rate of 36, QTC 546 * [facility] transfer center called and patient accepted by Dr. Tiwari community health program coordinator at [facility], awaiting bed placement. 07/17 * Repeat EKG showing sinus bradycardia with 2nd degree AV block, 2:1 or Mobitz type II with a rate of 58, QTc 471. Spoke with Dr. Kaye Convention Services Manager at [facility] and she suggested that as long as her blood pressure remains good then we do not have to move emergently. If her heart rate and blood pressure dropped then we could always start inotropic agent which would upgrade her to ICU status. If that were to happen then we will update [facility] transfer center. Currently she is asymptomatic and on bedrest. * B/P and heart rate improved overnight * Still awaiting transfer to [facility] updated on EKG results this a.m. * Was noted to have sinus pauses at the outside hospital and BB were held, ??? sick sinus syndrome * Continue cardiac monitoring * Troponin 72.4 today, will continue to trend. She denies any chest pain or shortness of breath. (4) Coronary artery disease: Code(s): I25.10 - Atherosclerotic heart disease of [place] coronary artery without angina pectoris Status: Acute Assessment and Plan: * cardiac catheterization on 07/01/2024, right radial approach shown severe multivessel disease including the LAD which was severely calcified /stenosed at 95-99%, calcified LCX at 90-95%, 100% mid RCA occlusion * patient refused CABG at [facility] until after the holidays and currently has an appointment with Dr. Avila on 08/05/2023 to discuss CABG surgery * continue cardiac monitoring (5) Ischemic cardiomyopathy: Code(s): I25.5 - Ischemic cardiomyopathy Status: Acute Assessment and Plan: * see above plan of care (6) NSTEMI (non-ST elevated myocardial infarction): Code(s): I21.4 - Non-ST elevation (NSTEMI) myocardial infarction Status: Acute Assessment and Plan: * history of NSTEMI at outside hospital with troponin bumped greater than 300 she was transferred to [facility] for consideration of CABG versus PCI * see above for details 07/16 * Troponin today 72.4, will trend--patient is not symptomatic, likely demand ischemia (7) Type 2 diabetes mellitus: Code(s): E11.9 - Type 2 diabetes mellitus without complications Status: Chronic Assessment and Plan: * Blood sugars ranging 128-152 * Hgb A1C 6.9 * Accu checks AC/HS * moderate dose SSI ordered * Hold glipizide, metformin * hypoglycemic protocol in place * Diabetic diet ordered (8) HTN (hypertension): Code(s): I10 - Essential (primary) hypertension Status: Chronic Assessment and Plan: 07/15 * blood pressure 98/34 after receiving metoprolol this morning with a heart rate of 36 * will hold Entresto until beta garrett wears off 07/16 * Blood pressure now ranging 122/50-145/70 * Will restart Entresto today (9) Hyperlipidemia: Code(s): E78.5 - Hyperlipidemia, unspecified Status: Chronic Assessment and Plan: * continue aspirin and atorvastatin Transfer Discharge Sum: Med Medications Active and Home Medications: Home Medications metformin 500 mg tablet See Rx Instructions .Route .COMPLEX #60 tabs 06/12/24 [Rx Confirmed 07/14/24] apixaban 2.5 mg tablet 2.5 mg PO Q12H 07/14/24 [History Confirmed 07/14/24] aspirin 81 mg chewable tablet ([place]ton Chewable Low Dose Aspirin) 81 mg PO DAILY 07/14/24 [History Confirmed 07/14/24] atorvastatin 40 mg tablet 40 mg PO HS 07/14/24 [History Confirmed 07/14/24] cholecalciferol (vitamin D3) 50 mcg (2,000 unit) capsule (D3-2000) 2,000 unit PO DAILY 07/14/24 [History Confirmed 07/14/24] empagliflozin 10 mg tablet 10 mg PO DAILY 07/14/24 [History Confirmed 07/14/24] sacubitril 49 mg-valsartan 51 mg tablet 1 tablet PO BID 07/14/24 [History Confirmed 07/14/24] Transfer Discharge Sum: Hosp Hospital Course Hospital course: 07/15/24: This is a 74 year old female with a significant past medical history of type 2 diabetes mellitus, hypertension, hyperlipidemia, tobacco dependence who presented to the hospital for evaluation of weakness. patient initially sustained a ground level fall at home on while at her granddaughter's house [place] and was taken to [facility] and underwent a right hip arthroplasty on 06/30/2024. She tolerated the procedure well without any immediate complications. She was found on EKG to have ST depression in V3, V4, V5, V6 and an elevated troponin of greater than 300 while at the outside hospital requiring transfer to tertiary care. At the outside hospital she was found to have sinus pauses on telemetry. She also had a echocardiogram which showed an ejection fraction of 30-35%, apex inferior laterally and entire septum akinetic, grade 3 LV diastolic dysfunction. She was placed on a heparin drip and was taken to the cardiac laborer drying department on 07/01/2024, right radial approach. She was found to have severe multivessel disease including severely calcified and stenosed LAD of 95-99%, calcified LCX 90-95%, 100% mid RCA occlusion. She was transferred to [facility] for consideration of CABG versus PCI considering her NSTEMI and ischemic cardiomyopathy. she was offered CABG surgery however initially declined as she wanted to wait until after the holidays to have this surgery done. Her heart rate at [facility] was in the 30s to 40s and they held her Coreg and beta garrett. She was also offered rehab placement after surgery but declined stating that she would do it at home with family help. at home, EMS was called out to the house twice yesterday for assistance with toileting and was brought in for evaluation of weakness and potential rehab placement. She states that her works every day during the week and her kids were not available to help like she thought that they would. Workup in the hospital included initial labs which showed a normal white blood cell count of 10.7, hemoglobin 10.2, platelet count 517, bicarb 20, creatinine 1.31, EGFR 40, albumin 2.3. Patient was given Valier while in the ED. she is being admitted in this setting for PT/OT evaluation and potential rehab placement. she was restarted on her beta garrett by Dr. Baker, ED physician, who admitted overnight and patient received beta garrett this morning which dropped her heart rate into the 30s, ranging 36-39 appears to be sinus Darius on EKG with a heart rate of 36 and a QTC of 546. patient was placed on telemetry here and calls are being placed for emergent transfer to tertiary care for Cardiology Services with the potential of CT surgery services. Patient denies any fever, chills, nausea, vomiting, diarrhea, abdominal pain, chest pain, or shortness of breath. She is currently on room air. Her blood pressures are running soft 98/34. Code status was discussed with patient and family and she wishes to remain a full code. [facility] transfer center was called at 11:[address] a[address]. Whittington, CT surgery team at [facility] at 11:34 a.m. who is deferring to regular Cardiology at [facility] as she may require pacing before CT surgery gets involved. Spoke with Convention Services Manager Dr. Tiwari at [facility] who is happy to accept patient and put her on the list to transfer. We are awaiting bed placement at this time. 07/16/24: EKG performed this morning and Revealed sinus bradycardia with 2nd degree AV block, 2-1 or Mobitz type 2, rate of 58, QTC 466. Her blood pressure improved as well as her heart rate overnight. I was able to restart her on her Entresto. Spoke with Dr. Kaye Convention Services Manager at [facility] and she suggested that as long as her blood pressure remains good then we do not have to move emergently. If her heart rate and blood pressure dropped then we could always start inotropic agent which would upgrade her to ICU status. If that were to happen then we will update [facility] transfer center. Currently she is asymptomatic and on bedrest. troponin I 72.4> 77.1> 78.0, likely demand ischemia. She continues on cardiac telemetry and bedrest at this time. I was notified by nursing at 6:15 p.m. that she got a room over at [facility]. last set of vital signs showed a temperature of 97.6?, pulse 78, respiratory rate 16, blood pressure 141/56 with a map of 84, 98% on room air. She was transferred in stable condition. Final diagnosis: combined systolic and diastolic heart failure with reduced ejection fraction, severe coronary artery disease, ischemic cardiomyopathy, generalized deconditioning Disposition: serious condition Time Spent with Patient Time attestation: Total time spent providing and/or coordinating transfer services: Total time spent: Greater than 30 minutes Exam Narrative: General: In no acute distress Cardiac: Normal S1 and S2. Sinus bradycardia 36, No murmur, gallops or friction rubs, peripheral pulses intact. Respiratory: Lungs clear to auscultation, no adventitious lung sounds, currently on room air Gastrointestinal: soft, non-distended, non-tender, normoactive bowel sounds. : voiding without difficulty. Neuro: Alert and oriented x4 DS: Data Data Completed and Pending Completed studies during hospitalization: EKG x2 Pending studies at discharge: none Labs on day of discharge: Labs from last 24 hours 07/16/24 07/16/24 07/16/24 17:34 16:31 15:36 WBC RBC Hgb Hct MCV MCH MCHC RDW Plt Count MPV Immature Gran % (Auto) Neut % (Auto) Lymph % (Auto) [place] % (Auto) Eos % (Auto) Baso % (Auto) Lymph # (Auto) [place] # (Auto) Eos # (Auto) Baso # (Auto) Abs Immat Gran (auto) Absolute Neuts (auto) Absolute Nucleated RBC Nucleated RBC % Sodium Potassium Chloride Carbon Dioxide Anion Gap BUN Creatinine Estim Creat Clear Calc Estimated GFR Glucose POC Capillary Glucose 175 H Calculated Osmolality Calcium Magnesium Total Bilirubin AST ALT Alkaline Phosphatase Troponin I 78.0 H* 77.1 H* Total Protein Albumin 07/16/24 07/16/24 11:36 10:56 WBC 10.3 RBC 3.02 L Hgb 8.9 L Hct 27.1 L MCV 89.7 MCH 29.5 MCHC 32.8 RDW 13.6 Plt Count 425 H MPV 10.0 Immature Gran % (Auto) 0.5 H Neut % (Auto) 76.3 H Lymph % (Auto) 11.9 L [place] % (Auto) 8.4 Eos % (Auto) 1.9 Baso % (Auto) 1.0 Lymph # (Auto) 1.23 [place] # (Auto) 0.87 Eos # (Auto) 0.20 Baso # (Auto) 0.10 Abs Immat Gran (auto) 0.05 H Absolute Neuts (auto) 7.87 H Absolute Nucleated RBC 0.00 Nucleated RBC % 0.0 Sodium 136 Potassium 4.9 Chloride 104 Carbon Dioxide 23 Anion Gap 9 BUN 57 H Creatinine 1.17 H Estim Creat Clear Calc 38 Estimated GFR 45 L Glucose 202 H POC Capillary Glucose 197 H Calculated Osmolality 303 H Calcium 9.0 Magnesium 1.7 L Total Bilirubin 0.3 AST 18 ALT 23 Alkaline Phosphatase 91 Troponin I 72.4 H* Total Protein 6.3 L Albumin 2.3 L Procedures/Treatments: none
== END 2024-07-16 20:35 | disposition short-term general hospital (02) ==
LOC: CHSED 17:46 → CHS2ND 18:24
PROVIDERS: Admitting Provider Internal Medicine; Emergency Provider Family Medicine; PCP Nurse Practitioner Family; Visit Provider Nurse Practitioner Acute Care
DX: I11.0 Hypertensive heart disease with heart failure (principal); I50.41 Acute combined systolic (congestive) and diastolic (congestive) heart failure; I21.4 Non-ST elevation (NSTEMI) myocardial infarction; I25.5 Ischemic cardiomyopathy; I25.10 Atherosclerotic heart disease of native coronary artery without angina pectoris; E78.5 Hyperlipidemia, unspecified; E11.9 Type 2 diabetes mellitus without complications; F17.210 Nicotine dependence, cigarettes, uncomplicated; R53.1 Weakness; Z96.641 Presence of right artificial hip joint; Z79.01 Long term (current) use of anticoagulants; Z79.82 Long term (current) use of aspirin; Z79.84 Long term (current) use of oral hypoglycemic drugs; Z79.899 Other long term (current) drug therapy
CPT/HCPCS: 36415; 80053; 82948; 83036; 83735; 84484; 85025; 85055; 93005; 96372; 99285; A9270; G0378; J1650; J1815